=== PATIENT | male | born 1930 | race Caucasian/White ===

== ENCOUNTER 2016-06-27 | Emergency (ER) | payer MEDICARE, OTHER | END 2016-06-27 15:54 | disposition home or self-care (01) ==

== ENCOUNTER 2016-06-29 | Outpatient (CLI) | payer MEDICARE, OTHER | END 2016-06-29 23:17 | disposition EMS.NT ==

== ENCOUNTER 2016-06-30 | Outpatient (CLI) | payer MEDICARE, OTHER | END 2016-06-30 02:09 | disposition EMS.NT | DX: Z03.89 Encounter for observation for other suspected diseases and conditions ruled out (principal) ==

== ENCOUNTER 2016-07-01 | Outpatient (CLI) | payer MEDICARE, OTHER | END 2016-07-01 14:04 | disposition EMS.NT ==

== ENCOUNTER 2016-08-03 | Outpatient (CLI) | payer MEDICARE, OTHER | END 2016-08-03 12:29 | disposition critical access hospital (66) | DX: R55 Syncope and collapse (principal) | CPT/HCPCS: A0425; A0429 ==

== ENCOUNTER 2016-08-03 12:29 | Inpatient (IN) | payer MEDICARE, OTHER ==
[2016-08-03] MEDS ORDERED: FUROSEMIDE 40 MG/4 ML VIAL IVP STA (14:20)
[2016-08-03] MEDS ORDERED: FUROSEMIDE 40 MG/4 ML VIAL ONE (14:25)
[2016-08-03] MEDS ORDERED: oxyCODONE 5 MG TABLET PO PRN ×2 (14:41)
[2016-08-03] MEDS ORDERED: ONDANSETRON 4 MG/2 ML VIAL IVP PRN (14:41)
[2016-08-03] MEDS ORDERED: ACETAMINOPHEN 325 MG TABLET PO PRN (14:41)
[2016-08-03] MEDS ORDERED: SODIUM CHLORIDE FLUSH 0.9% 10 ML SYRINGE IVP PRN (14:41)
[2016-08-03] MEDS: INSULIN ASPART 300 UNIT/3 ML PEN SUBQ SCH ×2 (18:26→21:21)
[2016-08-03] MEDS: BUDESONIDE 0.5 MG/2 ML NEB INH SCH (19:30)
[2016-08-03] MEDS: FUROSEMIDE 40 MG/4 ML VIAL IVP SCH (21:21)
[2016-08-03] MEDS: SODIUM CHLORIDE FLUSH 0.9% 10 ML SYRINGE IVP SCH (21:21)
[2016-08-03] MEDS: LATANOPROST 0.005% OPHTH DROPS EACHEYE SCH (21:22)
[2016-08-04] MEDS: SODIUM CHLORIDE FLUSH 0.9% 10 ML SYRINGE IVP SCH ×3 (06:26→23:35)
[2016-08-04] MEDS ORDERED: LIDOCAINE JELLY 2% 5 ML TUBE TOP ONE (06:31)
[2016-08-04] MEDS: PANTOPRAZOLE 40 MG TABLET PO SCH (07:38)
[2016-08-04] MEDS: INSULIN ASPART 300 UNIT/3 ML PEN SUBQ SCH ×4 (07:59→23:41)
[2016-08-04] MEDS: ENOXAPARIN 30 MG/0.3 ML SYRINGE SUBQ SCH (08:09)
[2016-08-04] MEDS: POLYETHYLENE GLYCOL 3350 17 GM PACKET PO SCH (08:09)
[2016-08-04] MEDS: FUROSEMIDE 40 MG/4 ML VIAL IVP SCH ×2 (08:10→23:35)
[2016-08-04] MEDS: SENNA 8.6 MG TABLET PO SCH (08:11)
[2016-08-04] MEDS: DOCUSATE SODIUM 250 MG CAPSULE PO SCH (08:11)
[2016-08-04] MEDS: MULTIVITAMIN TABLET PO SCH (08:11)
[2016-08-04] MEDS: METOPROLOL SUCCINATE 25 MG TABLET PO SCH (08:11)
[2016-08-04] MEDS: SILODOSIN PO SCH (08:11)
[2016-08-04] MEDS: ASPIRIN 325 MG TABLET PO SCH (08:11)
[2016-08-04] MEDS: POTASSIUM CHLORIDE 20 MEQ TABLET PO SCH (08:11)
[2016-08-04] MEDS ORDERED: POTASSIUM CHLORIDE 10 MEQ PO SCH (09:00)
[2016-08-04] MEDS: BUDESONIDE 0.5 MG/2 ML NEB INH SCH ×2 (09:16→19:20)
[2016-08-04] MEDS: LATANOPROST 0.005% OPHTH DROPS EACHEYE SCH (23:41)
[2016-08-05] MEDS: PANTOPRAZOLE 40 MG TABLET PO SCH (07:01)
[2016-08-05] MEDS: SODIUM CHLORIDE FLUSH 0.9% 10 ML SYRINGE IVP SCH ×3 (07:01→23:27)
[2016-08-05] MEDS: BUDESONIDE 0.5 MG/2 ML NEB INH SCH ×2 (07:25→19:30)
[2016-08-05] MEDS: SENNA 8.6 MG TABLET PO SCH (09:11)
[2016-08-05] MEDS: POLYETHYLENE GLYCOL 3350 17 GM PACKET PO SCH (09:11)
[2016-08-05] MEDS: ENOXAPARIN 30 MG/0.3 ML SYRINGE SUBQ SCH (09:11)
[2016-08-05] MEDS: ASPIRIN 325 MG TABLET PO SCH (09:12)
[2016-08-05] MEDS: MULTIVITAMIN TABLET PO SCH (09:12)
[2016-08-05] MEDS: DOCUSATE SODIUM 250 MG CAPSULE PO SCH (09:12)
[2016-08-05] MEDS: INSULIN ASPART 300 UNIT/3 ML PEN SUBQ SCH ×4 (09:12→23:26)
[2016-08-05] MEDS: METOPROLOL SUCCINATE 25 MG TABLET PO SCH (09:12)
[2016-08-05] MEDS: POTASSIUM CHLORIDE 20 MEQ TABLET PO SCH (09:12)
[2016-08-05] MEDS: SILODOSIN PO SCH (09:13)
[2016-08-05] MEDS: LATANOPROST 0.005% OPHTH DROPS EACHEYE SCH (23:27)
[2016-08-06] MEDS: BUDESONIDE 0.5 MG/2 ML NEB INH SCH ×2 (07:40→20:05)
[2016-08-06] MEDS: METOPROLOL SUCCINATE 25 MG TABLET PO SCH (09:09)
[2016-08-06] MEDS: PANTOPRAZOLE 40 MG TABLET PO SCH (09:09)
[2016-08-06] MEDS: SENNA 8.6 MG TABLET PO SCH ×3 (09:09→18:35)
[2016-08-06] MEDS: ENOXAPARIN 30 MG/0.3 ML SYRINGE SUBQ SCH (09:09)
[2016-08-06] MEDS: MULTIVITAMIN TABLET PO SCH (09:09)
[2016-08-06] MEDS: POTASSIUM CHLORIDE 20 MEQ TABLET PO SCH (09:09)
[2016-08-06] MEDS: DOCUSATE SODIUM 250 MG CAPSULE PO SCH (09:09)
[2016-08-06] MEDS: ASPIRIN 325 MG TABLET PO SCH (09:09)
[2016-08-06] MEDS: INSULIN ASPART 300 UNIT/3 ML PEN SUBQ SCH ×4 (09:10→21:47)
[2016-08-06] MEDS: SILODOSIN PO SCH (14:40)
[2016-08-06] MEDS: SODIUM CHLORIDE 0.9% 1,000 ML IV SCH ×2 (14:40→21:47)
[2016-08-06] MEDS: SODIUM CHLORIDE FLUSH 0.9% 10 ML SYRINGE IVP SCH ×2 (14:41→21:47)
[2016-08-06] MEDS: IPRATROPIUM/ALBUTEROL 3 ML NEB INH PRN (20:05)
[2016-08-06] MEDS: LATANOPROST 0.005% OPHTH DROPS EACHEYE SCH (21:46)
[2016-08-07] MEDS: SENNA 8.6 MG TABLET PO SCH (00:09)
[2016-08-07] MEDS: PANTOPRAZOLE 40 MG TABLET PO SCH (06:11)
[2016-08-07] MEDS: SODIUM CHLORIDE FLUSH 0.9% 10 ML SYRINGE IVP SCH (06:12)
[2016-08-07] MEDS ORDERED: BISACODYL 10 MG SUPP PR ONE (07:30)
[2016-08-07] MEDS: INSULIN ASPART 300 UNIT/3 ML PEN SUBQ SCH ×2 (08:51→13:00)
[2016-08-07] MEDS: DOCUSATE SODIUM 250 MG CAPSULE PO SCH (08:52)
[2016-08-07] MEDS: POTASSIUM CHLORIDE 20 MEQ TABLET PO SCH (08:52)
[2016-08-07] MEDS: ASPIRIN 325 MG TABLET PO SCH (08:53)
[2016-08-07] MEDS: METOPROLOL SUCCINATE 25 MG TABLET PO SCH (08:53)
[2016-08-07] MEDS: MULTIVITAMIN TABLET PO SCH (08:53)
[2016-08-07] MEDS: ENOXAPARIN 30 MG/0.3 ML SYRINGE SUBQ SCH (08:53)
[2016-08-07] MEDS: SILODOSIN PO SCH (08:58)
[2016-08-07] MEDS ORDERED: POLYETHYLENE GLYCOL 3350 17 GM PACKET PO SCH (09:00)
[2016-08-07] MEDS: BUDESONIDE 0.5 MG/2 ML NEB INH SCH (09:20)
[2016-08-07] MEDS: IPRATROPIUM/ALBUTEROL 3 ML NEB INH PRN ×2 (09:20→13:51)
== END 2016-08-07 15:33 | disposition home or self-care (01) | DRG 292 ==
DX: I13.0 Hypertensive heart and chronic kidney disease with heart failure and stage 1 through stage 4 chronic kidney disease, or unspecified chronic kidney disease (principal); R09.02 Hypoxemia; I50.9 Heart failure, unspecified; I25.10 Atherosclerotic heart disease of native coronary artery without angina pectoris; N18.4 Chronic kidney disease, stage 4 (severe); N18.9 Chronic kidney disease, unspecified; I50.30 Unspecified diastolic (congestive) heart failure; N17.9 Acute kidney failure, unspecified; R55 Syncope and collapse; E11.22 Type 2 diabetes mellitus with diabetic chronic kidney disease; E78.5 Hyperlipidemia, unspecified; N40.0 Benign prostatic hyperplasia without lower urinary tract symptoms; S50.311A Abrasion of right elbow, initial encounter; S60.419A Abrasion of unspecified finger, initial encounter; W45.8XXA Other foreign body or object entering through skin, initial encounter; W22.8XXA Striking against or struck by other objects, initial encounter; Z87.891 Personal history of nicotine dependence; Y93.9 Activity, unspecified; Z79.4 Long term (current) use of insulin; I65.22 Occlusion and stenosis of left carotid artery; Z79.82 Long term (current) use of aspirin; Z79.899 Other long term (current) drug therapy; Z95.5 Presence of coronary angioplasty implant and graft

== ENCOUNTER 2016-10-04 11:44 | Outpatient (CLI) | payer MEDICARE, OTHER | END 2016-10-04 11:45 | disposition critical access hospital (66) | DX: R09.89 Other specified symptoms and signs involving the circulatory and respiratory systems (principal); R41.0 Disorientation, unspecified; W01.0XXA Fall on same level from slipping, tripping and stumbling without subsequent striking against object, initial encounter; Y92.531 Health care provider office as the place of occurrence of the external cause | CPT/HCPCS: A0425; A0427 ==

== ENCOUNTER 2016-10-04 12:04 | Emergency (ER) | payer MEDICARE, OTHER | END 2016-10-04 15:17 | disposition home or self-care (01) | DX: I49.3 Ventricular premature depolarization (principal); R03.0 Elevated blood-pressure reading, without diagnosis of hypertension; I25.10 Atherosclerotic heart disease of native coronary artery without angina pectoris; E11.22 Type 2 diabetes mellitus with diabetic chronic kidney disease; N18.9 Chronic kidney disease, unspecified; J44.9 Chronic obstructive pulmonary disease, unspecified; Z95.5 Presence of coronary angioplasty implant and graft; Z79.82 Long term (current) use of aspirin; Z99.81 Dependence on supplemental oxygen; Z79.4 Long term (current) use of insulin; Z87.891 Personal history of nicotine dependence; Z91.81 History of falling ==

== ENCOUNTER 2016-12-09 20:57 | Outpatient (CLI) | payer MEDICARE, OTHER | END 2016-12-09 20:58 | disposition short-term general hospital (02) | LOC: EMS 20:57 | PROVIDERS: ATTEND Surgery | DX: R53.1 Weakness (principal); E16.2 Hypoglycemia, unspecified | CPT/HCPCS: A0425; A0427; A0888 ==

== ENCOUNTER 2016-12-23 16:16 | Outpatient (CLI) | payer MEDICARE, OTHER | END 2016-12-23 16:17 | disposition short-term general hospital (02) | LOC: EMS 16:16 | PROVIDERS: ATTEND Surgery | DX: S01.01XA Laceration without foreign body of scalp, initial encounter (principal); R19.7 Diarrhea, unspecified; W18.30XA Fall on same level, unspecified, initial encounter; Y93.E8 Activity, other personal hygiene; Y92.003 Bedroom of unspecified non-institutional (private) residence as the place of occurrence of the external cause | CPT/HCPCS: A0425; A0429 ==

== ENCOUNTER 2017-02-08 12:08 | Outpatient (CLI) | payer MEDICARE, OTHER | END 2017-02-08 12:09 | disposition short-term general hospital (02) | LOC: EMS 12:08 | PROVIDERS: ATTEND Surgery | DX: R40.4 Transient alteration of awareness (principal) | CPT/HCPCS: A0425; A0427 ==